=== PATIENT | male | born 1930 | race Caucasian/White ===

== ENCOUNTER 2017-03-10 03:10 | Inpatient (IN) ==
[2017-03-05 14:49] LABS: HEMATOCRIT 40.1 % (42.0-52.0); HEMOGLOBIN 13.8 g/dL (14.0-18.0); MCH 31.9 PG (27-31); MCHC 34.4 g/dL (33-37); MCV 92.6 FL (81-99); MPV 9.4 FL (7.4-10.4); RBC 4.33 XMIL (4.7-6.1)
[2017-03-05 15:05] LABS: AGAP 13; BUN 26 mg/dL (8-22); CALCIUM 10.1 mg/dL (8.8-10.2); CHLORIDE 97 mmol/L (98-107); COSMO 279; POTASSIUM 4.8 mmol/L (3.5-5.1); SODIUM 137 mmol/L (136-145); TCO2 27 mmol/L (25-35)
--- NOTE | 2017-03-05 15:09 | EKG Report ---
Test Performed on : 03/05/2017 2:35:36 PM Test Reason : PAT Blood Pressure : / mmHG Vent. Rate : 070 BPM Atrial Rate : 060 BPM P-R Int : 210 ms QRS Dur : 104 ms QT Int : 420 ms P-R-T Axes : 065 -41 070 degrees QTc Int : 453 ms Sinus rhythm. with 1st degree AV block. with occasional and consecutive premature ventricular comple xes. Left axis deviation Abnormal ECG When compared with ECG of 18-JUN-2015 08:54, fusion complexes are no longer present Nonspecific T wave abnormality aVL RSR' or QR pattern in V1 suggests right ventricular conduction delay Confirmed by Vitaliy Antunez DO ([id number]) on 03/08/2017 8:05:56 PM
[2017-03-10] MEDS ORDERED: REGLAN ONE (06:51)
[2017-03-10] MEDS ORDERED: PEPCID ONE (06:51)
[2017-03-10] MEDS ORDERED: KEFZOL 1 GM/D5W 0 GM/0 ML IVPB ONE (06:51)
[2017-03-10] MEDS ORDERED: LR 1,000 ML ONE (06:52)
[2017-03-10] MEDS ORDERED: NORCURON ONE (07:49)
[2017-03-10] MEDS ORDERED: XYLOCAINE-MPF 2% ONE (07:49)
[2017-03-10] MEDS ORDERED: QUELICIN (DOSE) ONE (07:49)
[2017-03-10] MEDS ORDERED: STERILE WATER INJ. ONE (07:49)
[2017-03-10] MEDS ORDERED: ROBINUL ONE ×2 (07:49→10:28)
[2017-03-10] MEDS ORDERED: NEO-SYNEPHRINE ONE (07:50)
[2017-03-10] MEDS ORDERED: ATROPINE ONE (07:50)
[2017-03-10] MEDS ORDERED: NITROGLYCERIN 50 MG/D5W 50 MG/250 ML IV.SOLN ONE (08:48)
[2017-03-10] MEDS ORDERED: KEFZOL 1 GM/D5W 1 GM/50 ML IVPB ONE (08:55)
[2017-03-10] MEDS ORDERED: VERSED ONE (08:57)
[2017-03-10] MEDS ORDERED: HEPARIN ONE (09:02)
[2017-03-10] MEDS ORDERED: XYLOCAINE 1% ONE (09:03)
[2017-03-10] MEDS ORDERED: NS 500 ML ONE (09:03)
[2017-03-10] MEDS ORDERED: NS 1,000 ML ONE ×2 (09:03→11:36)
[2017-03-10] MEDS ORDERED: DIPRIVAN 1% ONE (09:12)
[2017-03-10] MEDS ORDERED: KEFZOL ONE (09:14)
[2017-03-10] MEDS ORDERED: SENSORCAINE 0.5%-EPI 1:200,000 ONE (09:21)
[2017-03-10] MEDS ORDERED: HEPARIN (DOSE) ONE (09:53)
[2017-03-10 10:23] LABS: ALLEN TEST NO; BE 2.2 mmoll (-3.0-3.0); BLOOD TYPE ARTERIAL; METHB 1.7 % (0.0-1.5); PCO2(98.6) 34 mmHg (35-45); PO2(98.6) 383 mmHg (60-100); SAMPLE BLOOD; SAO2 99.6 % (95.0-100.0); SRATE 10 BPM; TVOL 700 mL; pH(98.6) 7.48 (7.35-7.45)
[2017-03-10] MEDS ORDERED: NEOSTIGMINE ONE (10:23)
[2017-03-10 10:24] LABS: DRAW SITE OTHER; MODALITY VENTILATOR
[2017-03-10] MEDS ORDERED: ZOFRAN ONE (10:29)
[2017-03-10] MEDS ORDERED: DECADRON ONE (10:29)
[2017-03-10] MEDS: OFIRMEV 1000 MG/ISOTONIC SOLN 1,000 MG/100 ML BOTTLE ONE ×2 (11:30→12:42)
--- NOTE | 2017-03-10 12:23 | OPERATIVE NOTE ---
PROCEDURE DATE: 03/10/2017 PROCEDURE PERFORMED: Right carotid endarterectomy with patch angioplasty. SURGEON: Miguel Cook MD TIMBER SPRINKLER: Orlando Devries MD, who assisted with dissection, endarterectomy, and closure. PREOPERATIVE DIAGNOSIS: High-grade right internal carotid stenosis. POSTOPERATIVE DIAGNOSIS: High-grade right internal carotid stenosis. DESCRIPTION OF PROCEDURE: Satisfactory general endotracheal anesthesia was achieved. The patient was placed into gentle reverse Trendelenburg position. The right side of the neck was prepped and draped in a sterile fashion. We ultrasounded the neck to prove that the bifurcation was in the mid aspect of the neck. We then prepped and draped the area of the right side of the neck in a sterile fashion. We anesthetized the skin with 0.25% Marcaine with epinephrine along the anterior border of the sternocleidomastoid muscle. We incised the skin along the anterior border and this carried our incision through the platysma. We then identified the anterior facial vein. We ligated it and divided it, and added an additional clip on each end of the vein. We then exposed the bifurcation of the common carotid. We surrounded the common carotid with an umbilical tape. The external carotid was surrounded with a large vessel loop. We dissected out the internal carotid and surrounded a small vessel loop. Heparin 5000 units was given. After the heparin had circulated for 4-5 minutes, we then occluded flow in the branch vessels and clamped off the common. Under 2.5 loupe magnification, we incised the common and extended it with Aquino scissors through the plaque in the proximal internal into finally reaching normal lumen of the internal carotid. We placed a 4-3 mm Sundt shunt, the smaller end going in the internal and the larger end going in the common. Clamp time was about 2 minutes. We then used a Ridgeway to raise the plaque out of the common. We transected it proximally with Aquino scissors. We used a Ridgeway to continue to dissect the plaque out of the bifurcation. We did an eversion endarterectomy out of the external and then used a Ridgeway to continue to dissect the plaque from the internal until we had a nice taper point distally. We irrigated out the endarterectomized vessel and removed all leaflets we could identify. We did tack the intima distally with two 7-0 Prolene stitches. We then obtained a 1 x 6 patch and, after it was appropriately prepared, we then sutured it to the endarterectomized vessel using a 6-0 Prolene running stitch. As we neared completion, we back bled the external, removed the shunt, back bled the internal fore bled the common and, once again, occluded flow in the branch vessels. We then completed the patch angioplasty. We held the internal occluded, we opened the external and then the common. After 5 seconds, we opened the internal. A couple of extra stitches were used to achieve complete hemostasis of the patch angioplasty. We irrigated out the wound with Kefzol-impregnated saline. We placed a Laith drain within the wound. We secured it to the skin with 2-0 silk. We then proceeded to close the platysma with a running 3-0 Polysorb. Once again, we used 0.25% Marcaine with epinephrine in the subcutaneous tissue and skin. We closed the skin with a 4-0 Polysorb subcuticular stitch. A sterile dressing was applied. He tolerated it well and was awakened at the time of this dictation. cc: Miguel Coko MD
[2017-03-10] MEDS ORDERED: NS 1,000 ML IV ONE (12:43)
[2017-03-10] MEDS ORDERED: TUMS PO PRN (12:43)
[2017-03-10] MEDS ORDERED: ZOFRAN IV PRN (12:43)
[2017-03-10] MEDS ORDERED: ANALGESIC BALM TOP PRN (13:15)
[2017-03-10] MEDS: ULTRAM PO PRN ×2 (13:30→21:37)
[2017-03-10] MEDS ORDERED: MORPHINE IV PRN (16:51)
[2017-03-10] MEDS: OFIRMEV 1000 MG/ISOTONIC SOLN 1,000 MG/100 ML BOTTLE IV SCH ×2 (17:22→23:19)
[2017-03-10] MEDS: SYMBICORT 160/4.5 MICROGM INHALER INH SCH (20:15)
[2017-03-10] MEDS: ZANTAC PO SCH (20:23)
[2017-03-10] MEDS: PHENERGAN PR PRN (21:01)
[2017-03-11] MEDS: OFIRMEV 1000 MG/ISOTONIC SOLN 1,000 MG/100 ML BOTTLE IV SCH ×4 (04:46→23:26)
[2017-03-11] MEDS: SYMBICORT 160/4.5 MICROGM INHALER INH SCH ×2 (08:30→19:40)
[2017-03-11] MEDS: CARDIZEM CD PO SCH (08:46)
[2017-03-11] MEDS: CYMBALTA PO SCH (08:46)
[2017-03-11] MEDS: COZAAR PO SCH (08:46)
[2017-03-11] MEDS: ZANTAC PO SCH ×2 (08:46→20:21)
[2017-03-11] MEDS: ASPIRIN PO SCH (08:46)
[2017-03-11] MEDS: ULTRAM PO PRN (21:19)
[2017-03-12] MEDS: PHENERGAN PR PRN (00:07)
[2017-03-12] MEDS: OFIRMEV 1000 MG/ISOTONIC SOLN 1,000 MG/100 ML BOTTLE IV SCH (05:26)
[2017-03-12] MEDS: SYMBICORT 160/4.5 MICROGM INHALER INH SCH (07:50)
[2017-03-12 07:53] VITALS: BP 129/62
[2017-03-12] MEDS: COZAAR PO SCH (08:57)
[2017-03-12] MEDS: CYMBALTA PO SCH (08:57)
[2017-03-12] MEDS: CARDIZEM CD PO SCH (08:57)
[2017-03-12] MEDS: ASPIRIN PO SCH (08:57)
[2017-03-12] MEDS: ZANTAC PO SCH (08:57)
== END 2017-03-12 11:15 | disposition home or self-care (01) ==
LOC: SURHOLD 03:10 → EDSTATUS 10:00 → ICU 12:37
PROVIDERS: ADMIT Surgery; ATTEND Surgery

== ENCOUNTER 2017-03-25 03:18 | Inpatient (IN) ==
[2017-03-25] MEDS ORDERED: ASPIRIN PO STA (03:30)
--- NOTE | 2017-03-25 03:32 | PROVIDER DOCUMENTATION ---
HPI-Chest Pain - General Stated Complaint: CHEST PAIN Time Seen by Provider: 03/25/17 03:30 Source: patient (Patient is a 86 year old white male who presents with substernal chest heaviness since yesterday.) Allergies/Adverse Reactions: Patient Allergies Allergy/AdvReac Type Severity Reaction Status Date / Time No Known Allergies Allergy Verified 03/25/17 03:49 Home Medications: Home Medication List Medication Instructions Recorded Confirmed Last Taken Type Diltiazem HCl [Diltiazem 24Hr ER] 240 mg PO DAILY 03/10/13 03/10/17 03/09/17 History Lorazepam 1 mg PO PRN PRN 03/10/13 03/10/17 03/08/17 History Losartan [Cozaar] 50 mg PO DAILY 03/10/13 03/10/17 03/09/17 History Fluticasone Propionate [Flonase 2 sprays NS DAILY PRN #1 spray.susp 06/18/15 Unknown Rx Allergy Relief] Acetaminophen [Tylenol] 500 mg PO Q4H PRN PRN 03/05/17 03/10/17 03/09/17 History Budesonide/Formoterol Fumarate 10.2 gm IH BID 03/05/17 03/10/17 03/08/17 History [Symbicort 160-4.5 Mcg Inhaler] Calcium Carbonate [Tums] 200 mg PO PRN PRN 03/05/17 03/10/17 Unknown History Cilostazol 100 mg PO BID 03/05/17 03/10/17 03/06/17 History Duloxetine HCl [Cymbalta] 30 mg PO DAILY 03/05/17 03/10/17 Unknown History Menthol [Icy Hot] 1 each TP PRN PRN 03/05/17 03/10/17 Unknown History Ranitidine HCl [Zantac] 300 mg PO BID 03/05/17 03/10/17 03/07/17 History Aspirin [Adult Low Dose Aspirin EC] 81 mg PO DAILY #100 tablet. 03/12/17 Unknown Rx Tramadol [Ultram] 50 mg PO Q6H PRN PRN #20 tablet 03/12/17 Unknown Rx - History of Present Illness-CP Location: reports: substernal Severity in ED: moderate Onset/Duration: 24 hours ago Timing: intermittent Aspirin Treatment Today: no aspirin today Similar Symptoms Previously?: Yes Recently Seen Here or By Another Healthcare Provider: No Review of Systems - Adult - REVIEW OF SYSTEMS - ADULT Constitutional: reports: see HPI. denies: chills, fever Eyes: reports: no symptoms reported Ears, Nose, Mouth & Throat: reports: no symptoms reported Cardiovascular: reports: chest pain Respiratory: reports: no symptoms reported Gastrointestinal: reports: no symptoms reported Genitourinary: reports: no symptoms reported Musculoskeletal: reports: no symptoms reported Integumentary: reports: no symptoms reported Neurological: reports: no symptoms reported Psychiatric: reports: no symptoms reported Endocrine: reports: no symptoms reported Hematologic/Lymphatic: reports: no symptoms reported Allergic/Immunologic: reports: no symptoms reported All Other Systems: Reviewed and Negative Past History - Adult - PAST MEDICAL HISTORY-ADULT Review of Records: reports: Old Records Reviewed, Nursing Assessment Review, Medications Reviewed, Social history reviewed & non-contributory. Cardiovascular: reports: HTN Respiratory: reports: COPD Endocrine/Immune: reports: cancer (skin) - PRIOR SURGERIES/PROCEDURES Surgical/Procedure History: reports: cholecystectomy, other (TURP) - IMMUNIZATION STATUS Childhood Immunizations: See Nurse Assessment Flu Vaccine: See Nurse Assessment Physical Exam-General - CONSTITUTIONAL General Appearance: alert, no apparent distress, other (severe hearing loss, nondiaphoretic) - EYES Eyes: pink conjunctivae - HEAD, EARS, NOSE, MOUTH & THROAT HENMT: moist mucous membranes - NECK Neck: supple - RESPIRATORY Respiratory: lungs clear, no pleuratic chest pain - CARDIOVASCULAR Cardiovascular: regular rate, rhythm - GASTROINTESTINAL (ABDOMEN) Abdominal Exam: non tender, soft - MUSCULOSKELETAL Back Exam: normal inspection, no CVA tenderness Extremity: normal range of motion, non-tender - SKIN Integumentary: normal color, normal turgor - NEUROLOGIC Neurologic: grossly normal, other (nonfocal) - PSYCHIATRIC Psych/Mental Status: other (anxious) Progress - PLAN OF CARE/RESULTS Progress/Plan/Lab Results: Vital Signs - 8 hr 03/25/17 03:31 03/25/17 04:54 Temperature 97.7 F Pulse Rate 88 92 H Respiratory Rate 20 18 Blood Pressure 125/69 142/87 O2 Sat by Pulse Oximetry 99 98 Laboratory Results - last 24 hr 03/25/17 03/25/17 03/25/17 03:40 03:40 03:40 WBC 10.75 RBC 4.29 L Hgb 13.7 L Hct 39.5 L MCV 92.1 MCH 31.9 H MCHC 34.7 RDW Std Deviation 12.8 Plt Count 274 MPV 8.7 Immature Gran % (Auto) 0.2 Neut % (Auto) 72.2 Lymph % (Auto) 15.4 L Kaufman % (Auto) 9.7 H Eos % (Auto) 2.2 Baso % (Auto) 0.3 Immature Gran # (Auto) 0.02 Neut # (Auto) 7.76 H Lymph # (Auto) 1.66 Kaufman # (Auto) 1.04 H Eos # (Auto) 0.24 Baso # (Auto) 0.03 PT INR PTT (Actin FS) D-Dimer 0.89 H Sodium 135 L Potassium 4.2 Chloride 97 L Carbon Dioxide 27 Anion Gap 11 BUN 22 Creatinine 1.1 Estimated GFR/1.73 m2 > 60 BUN/Creatinine Ratio 20 Glucose 108 H Calculated Osmolality 274 Calcium 8.9 Magnesium 2.5 Total Bilirubin 0.55 AST 46 H ALT 17 Alkaline Phosphatase 90 Creatine Kinase 288 H Creatine Kinase Index 20.1 H CK-MB (CK-2) 57.97 H Troponin T Rmy-Z-Fnyidfhismk Pept Total Protein 7.1 Albumin 4.1 Globulin 3.0 Albumin/Globulin Ratio 1.4 03/25/17 03/25/17 03/25/17 03:40 03:40 03:40 WBC RBC Hgb Hct MCV MCH MCHC RDW Std Deviation Plt Count MPV Immature Gran % (Auto) Neut % (Auto) Lymph % (Auto) Kaufman % (Auto) Eos % (Auto) Baso % (Auto) Immature Gran # (Auto) Neut # (Auto) Lymph # (Auto) Kaufman # (Auto) Eos # (Auto) Baso # (Auto) PT 10.0 INR 0.96 PTT (Actin FS) 26.6 D-Dimer Sodium Potassium Chloride Carbon Dioxide Anion Gap BUN Creatinine Estimated GFR/1.73 m2 BUN/Creatinine Ratio Glucose Calculated Osmolality Calcium Magnesium Total Bilirubin AST ALT Alkaline Phosphatase Creatine Kinase Creatine Kinase Index CK-MB (CK-2) Troponin T 0.370 H* Sln-J-Hqkezetiodo Pept 5444 H Total Protein Albumin Globulin Albumin/Globulin Ratio Orders Category Date Time Status Cardiac Monitoring DIRECTED Care 03/25/17 03:31 Active Oxygen Therapy- ED Nursing DIRECTED Care 03/25/17 03:31 Active Saline Loc NOW Care 03/25/17 03:31 Active CBC WITH ELECTRONIC DIFF [HEME] Stat Lab 03/25/17 03:40 Completed CK PROFILE [SP CHEM] Stat Lab 03/25/17 03:40 Completed COMPREHENSIVE METABOLIC PANEL [CHEM] Stat Lab 03/25/17 03:40 Completed D-DIMER [CHEM] Stat Lab 03/25/17 03:40 Completed MAGNESIUM [CHEM] Stat Lab 03/25/17 03:40 Completed PRO B-NATRIURETIC PEPTIDE Stat Lab 03/25/17 03:40 Completed PROTIME WITH INR [COAG] Stat Lab 03/25/17 03:40 Completed PTT [COAG] Stat Lab 03/25/17 03:40 Completed TROPONIN T Stat Lab 03/25/17 03:40 Completed Aspirin Med 03/25/17 03:30 Discontinued 325 mg PO STAT STA Enoxaparin 1 mg/kg [Lovenox 1 mg/kg] Med 03/25/17 04:41 Discontinued 1 each SUBQ NOW ONE Lido/Main Alk/Al&mg Hydrox [G.i. Cocktail] Med 03/25/17 03:58 Discontinued 30 ml PO NOW ONE Metoprolol [Lopressor] Med 03/25/17 04:45 Discontinued 25 mg PO NOW ONE EKG [EKG] Stat Ther 03/25/17 03:31 Draft Result Diagrams: 03/25/17 03:40 03/25/17 03:40 - EKG 1 Time of EKG reading by physician:: 03:27 EKG Read and Signed by:: Kelechi Davalos EKG Interpretation (*Must complete 3 of following elements*): Abnormal Rate: 87 Rhythm: atrial fibrillation [place]: normal QRS: normal IA Interval: normal ST Wave: normal Prior EKG Comparison: no prior EKG Departure - Departure Date of Disposition Decision: 03/25/17 Time of Disposition Decision: 05:28 DIAGNOSIS: Non-ST elevated myocardial infarction Disposition: ADMITTED INPATIENT 09 Certified Medical Emergency: Emergent Condition: Stable Referrals and Follow-Ups: Christy Prado MD [Primary Care Provider] - - Critical Care Note This patient required my direct & personal management of CC.: Yes Attestation - Physician/ RIO Attestation Patient care was provided by Advanced Practice Provider:: No The physician spent face to face time with patient:: Yes Advanced Practice Provider documentation review:: Supervising physician onsite and consulted in the evaluation and care of this patient. The physician did have a face to face encounter with the patient.
[2017-03-25 03:54] LABS: MANUAL DIFF NEEDED? NO
[2017-03-25 03:58] LABS: BASO% 0.3 % (0.0-0.8); EOS# 0.24 X1000 (0.0-0.7); EOS% 2.2 % (0.0-10.0); HEMATOCRIT 39.5 % (42.0-52.0); HEMOGLOBIN 13.7 g/dL (14.0-18.0); IMM GRAN# 0.02 X1000 (0.0-0.04); IMM GRAN% 0.2 % (0.0-0.5); LYMPH# 1.66 X1000 (1.2-3.4); LYMPH% 15.4 % (20.5-51.1); MCH 31.9 PG (27-31); MCHC 34.7 g/dL (33-37); MCV 92.1 FL (81-99); MONO# 1.04 X1000 (0.11-0.59); MONO% 9.7 % (1.7-9.3); MPV 8.7 FL (7.4-10.4); NEUT% 72.2 % (42.2-75.2); PLT 274 X1000 (130-400); RBC 4.29 XMIL (4.7-6.1)
[2017-03-25] MEDS ORDERED: G.I. COCKTAIL PO ONE (03:58)
[2017-03-25 04:07] LABS: INR 0.96; PTT 26.6 Seconds (22.0-36.0)
[2017-03-25 04:17] LABS: AGAP 11; ALBUMIN 4.1 g/dL (3.5-5.0); ALKALINE PHOSPHATASE 90 U/L (32-122); BUN 22 mg/dL (8-22); CALCIUM 8.9 mg/dL (8.8-10.2); CHLORIDE 97 mmol/L (98-107); COSMO 274; GOT 46 U/L (10-34); GPT 17 U/L (10-44); MAGNESIUM 2.5 mg/dL (1.5-2.7); POTASSIUM 4.2 mmol/L (3.5-5.1); SODIUM 135 mmol/L (136-145); TCO2 27 mmol/L (25-35); TOTAL BILIRUBIN 0.55 mg/dL (0.20-1.00); TOTAL PROTEIN 7.1 g/dL (6.3-8.3)
[2017-03-25 04:26] LABS: CK PROFILE 288 U/L (24-204)
[2017-03-25 04:40] LABS: CK INDEX 20.1 (0.0-2.5); CK-MB 57.97 ng/mL (0.0-5.0)
[2017-03-25] MEDS ORDERED: LOVENOX 1 MG/KG SUBQ ONE (04:41)
[2017-03-25] MEDS ORDERED: LOPRESSOR PO ONE (04:45)
--- NOTE | 2017-03-25 05:17 | EKG Report ---
Test Performed on : 03/25/2017 04:23:37 AM Test Reason : Chest Pain Blood Pressure : / mmHG Vent. Rate : 085 BPM Atrial Rate : 288 BPM P-R Int : 000 ms QRS Dur : 088 ms QT Int : 460 ms P-R-T Axes : 000 -24 169 degrees QTc Int : 547 ms Atrial fibrillation. with premature ventricular or aberrantly conducted complexes. Marked ST abnormality, possible anterior subendocardial injury Prolonged QT Abnormal ECG When compared with ECG of 25-MAR-2017 03:26, (Unconfirmed) No significant change was found Unconfirmed Result
[2017-03-25] MEDS ORDERED: NITROGLYCERIN TOP ONE (05:33)
--- NOTE | 2017-03-25 05:33 | EKG Report ---
Test Performed on : 03/25/2017 03:26:29 AM Test Reason : HEAVINESS INCHEST Blood Pressure : / mmHG Vent. Rate : 087 BPM Atrial Rate : 312 BPM P-R Int : 000 ms QRS Dur : 090 ms QT Int : 418 ms P-R-T Axes : 000 -19 174 degrees QTc Int : 502 ms Atrial fibrillation. with premature ventricular or aberrantly conducted complexes. ST \T\ T wave abnormality, consider anterolateral ischemia Prolonged QT Abnormal ECG When compared with ECG of 05-MAR-2017 14:35, Atrial fibrillation. has replaced Sinus rhythm. ST now depressed in Anterior leads Nonspecific T wave abnormality now evident in Inferior leads T wave inversion now evident in Anterolateral leads Unconfirmed Result
[2017-03-25] MEDS ORDERED: LOVENOX SUBQ ONE (06:00)
--- NOTE | 2017-03-25 07:34 | Diag Imaging Result Doc PS360 ---
CHEST-PORTABLE - 03/25/2017 INDICATION: Chest Pain TECHNIQUE: COMPARISON: 07/26/2014 FINDINGS: Stable linear scarring in the right midlung. No focal infiltrates, pneumothorax, or pleural effusion. Heart size and pulmonary vascularity is normal. IMPRESSION: No acute disease or change from prior. Electronically signed by Glenn Tai 03/25/2017 7:32 AM
[2017-03-25] MEDS ORDERED: TYLENOL PO PRN (08:07)
[2017-03-25] MEDS ORDERED: ATIVAN PO PRN (08:32)
[2017-03-25] MEDS ORDERED: DUONEB (A & A) INH PRN (08:35)
[2017-03-25] MEDS ORDERED: PROTONIX PO SCH (09:00)
[2017-03-25] MEDS ORDERED: CYMBALTA PO SCH (09:00)
[2017-03-25] MEDS ORDERED: ZANTAC PO SCH (09:00)
[2017-03-25] MEDS: ZOFRAN IV PRN ×2 (09:05→12:58)
[2017-03-25] MEDS: MORPHINE IV PRN ×2 (09:06→12:58)
[2017-03-25 10:22] LABS: CK INDEX 20.7 (0.0-2.5); CK-MB 74.75 ng/mL (0.0-5.0)
--- NOTE | 2017-03-25 10:51 | EKG Report ---
Test Performed on : 03/25/2017 09:13:22 AM Test Reason : NSTEMI Blood Pressure : / mmHG Vent. Rate : 085 BPM Atrial Rate : 271 BPM P-R Int : 000 ms QRS Dur : 086 ms QT Int : 434 ms P-R-T Axes : 062 -36 142 degrees QTc Int : 516 ms Atrial flutter. with variable AV block. Left axis deviation ST \T\ Marked T wave abnormality, consider anterolateral ischemia Prolonged QT Abnormal ECG When compared with ECG of 25-MAR-2017 04:23, Atrial flutter. has replaced Atrial fibrillation. Confirmed by Vitaliy Antunez DO ([id number]) on 03/25/2017 6:19:16 PM
[2017-03-25] MEDS ORDERED: LOPRESSOR PO SCH (11:30)
[2017-03-25 12:12] VITALS: BP 117/70
--- NOTE | 2017-03-25 12:16 | HISTORY AND PHYSICAL ---
PRIMARY CARE PROVIDER: Christy Prado MD. Date and Time of History and Physical: 03/25/17 at 0600. CHIEF COMPLAINT: Chest pain. HISTORY OF PRESENT ILLNESS: Mr. Cain is an 86-year-old, male, who presented to the ER early this morning at approximately 3 a.m. He states that yesterday morning he began having epigastric and burning type abdominal pain. He does report a history of gastroesophageal reflux disease, as well as frequent constipation. The patient states that this type pain frequently happens when he has to use a laxative to have a bowel movement, although he reports that this pain continued throughout the day and later on that evening became a different type pain with pressure across his chest. He also reports some mid back pain as well that was across his mid back. The patient does report a history of chronic back pain due to arthritis and degenerative disk disease, but states this pain was different compared to his previous back pain. The patient denied any dizziness, lightheadedness, shortness of breath or palpitations, although did report some diaphoresis with this pain. He did report some nausea and ER staff did state that he vomited once in the ED. The patient did undergo a recent surgery for a right carotid endarterectomy secondary to right internal carotid stenosis. This was performed on 02/28/2017. His family at bedside did state though the patient has not had any complications secondary to surgery, but did state that since his procedure he has not been back to his normal self and has been more fatigued than he normally is. The patient also denied any history of cough, fever, body aches or chills. He denied any dysuria or urinary frequency. He also denied any swelling, pain, numbness or tingling in his extremities. Upon evaluation in the ER, the patient was found to have EKG findings of atrial flutter with premature ventricular or aberrantly conducted complexes. There was also ST and T-wave abnormality, which were concerning for anterolateral ischemia. Rate was 87, QTc was 502. His CK total was elevated, as well as the index and the MB, and his troponin was also elevated at 0.37. Dr. Antunez with cardiology was consulted by the ER physician for possible non ST elevation VA. Dr. Antunez did accept the patient and does want him to be admitted here for further treatment and evaluation of a non ST elevation VA and to be placed on Lovenox therapy. Also upon questioning, the patient denies any previous history of an irregular heartbeat or tachycardia. He states that he is unsure of why he takes the diltiazem on his medication list. The patient is somewhat of a poor historian, although his and son at bedside, were able to assist with some information pertaining to history of present illness and past medical history. At this time we will admit the patient for further treatment evaluation. REVIEW OF SYSTEMS: A 12 point review of systems was conducted with the patient. All were negative, except for pertinent positives mentioned in the HPI. PAST MEDICAL HISTORY: 1. COPD. 2. Hypertension. 3. Hyperlipidemia. 4. Peripheral artery disease. 5. Gastroesophageal reflux disease. 6. Lumbar spinal stenosis. 7. Anxiety. 8. Benign prostatic hypertrophy. 9. Right internal carotid stenosis status post right carotid endarterectomy. 10. Skin cancer. 11. Arthritis. PAST SURGICAL HISTORY: 1. Status post right carotid endarterectomy on 02/28/2017. 2. Cholecystectomy. 3. Cataract surgery. 4. Tonsillectomy. 5. Right popliteal balloon angioplasty, right common femoral, superficial femoral and profunda femoris endarterectomy, and patch graft angioplasty performed by Dr. Devries in August 2010. 6. Transurethral resection of prostate. SOCIAL HISTORY: The patient is a former smoker, although he quit smoking 40 years ago. He has known history of alcohol or illicit drug use. He currently lives at home with his . FAMILY HISTORY: Positive for his mother having a history of lupus and his father having a history of congestive heart failure. He does have a son who secondary to Hodgkin disease. ALLERGIES: Patient has no known allergies. HOME MEDICATIONS: 1. Brovana nebulizer 15 mcg inhaled q. 12 hours. 2. Cilostazol 100 mg p.o. b.i.d. 3. Diltiazem 24 hour extended release 240 mg p.o. daily. 4. Cymbalta 30 mg p.o. daily. 5. Flonase allergy relief 2 sprays nasally p.r.n. as needed for nasal congestion. 6. Robitussin AC 5 mL p.o. p.r.n. for cough. 7. Atrovent 0.03% nasal spray, 2 sprays nasally b.i.d. 8. Lorazepam 1 mg p.o. b.i.d. 9. Losartan 50 mg p.o. daily. 10. Protonix 3 mg p.o. daily. 11. Zantac 300 mg p.o. b.i.d. DIAGNOSTIC DATA/LABORATORY RESULTS: White blood cell count 10.7, hemoglobin. 13.5, hematocrit 39.5, platelet count is 274. PT 10 and INR 0.96. PTT is 26.6. D-dimer 0.89. Sodium 135, potassium 4.2, chloride 97, bicarbonate 27. BUN 22, creatinine 1.1 with a GFR greater than 60, glucose 108, calcium 8.9, magnesium 2.5. Total bilirubin is 0.55. AST 46, ALT 17, alkaline phosphatase is 90. CI is 288 and CK index 20.1 and CK-MB is 57.97. Troponin was 0.370. ProBNP 5424. EKG showed atrial flutter with premature intraventricular or aberrantly conducted complexes. There is a marked ST abnormality that is concerning for anterolateral ischemia. The rate is 87 with a QTc of 502. Chest x-ray showed no acute disease or change from prior. This is from radiology. PHYSICAL EXAMINATION: VITALS: Temperature 97.7 degrees, heart rate 82, respirations 20, blood pressure 104/67 and oxygen saturation is 94% on room air. GENERAL: Mr. Cain is a pleasant, 86-year-old, male, who is resting comfortably on the ER stretcher. He is in no acute distress. He was awake, alert, and able to answer questions appropriately. HEENT: Head is atraumatic, normocephalic. Pupils are equal, round, reactive to light, were 3 mm bilaterally and brisk. Oral mucosa is moist. Oropharynx is clear. NECK: Supple. Trachea midline. No jugular venous distention noted. No carotid bruits noted on auscultation bilaterally. CARDIOVASCULAR: Patient has normal S1, S2. No murmurs, gallops, rubs appreciated with a regular rate and slightly irregular rhythm. PULMONARY: The patient has symmetrical chest expansion bilaterally. Lung sounds are clear to auscultation in bilateral [place]. ABDOMEN: Soft, nontender, nondistended bowel. Bowel sounds are present in all four quadrants. EXTREMITIES: No cyanosis, clubbing or edema noted. Pulse, motor and sensory are intact in all extremities. Pedal pulses are 2+ bilaterally. Capillary refill was less than 3. NEUROLOGICAL: Patient is alert and oriented to person, place, time and situation. Cranial nerves 2-12 are grossly intact. ASSESSMENT AND PLAN: 1. Non ST elevation myocardial infarction. Cardiology has been consulted. The patient has been anticoagulated with Lovenox per their request. He will receive Lovenox 1 mg/ kg subcutaneous every 12 hours. He has also received an aspirin. We will continue with close cardiac monitoring in the [facility] with telemetry. He will have vital signs every 4 hours. We will continue with serial cardiac enzymes. The patient will remain on nothing by mouth until evaluated by cardiology. We have also ordered repeat electrocardiogram for later on this morning. At this time, the patient's chest pain has subsided. He has received nitroglycerin and morphine for his pain, and we will continue to follow his condition closely. 2. Hypertension. At this time, the patient's blood pressure is on the low side with the last blood pressure of 104/67. He did receive some metoprolol 25 mg oral in the emergency room, although at this time given his blood pressure we will hold any further antihypertensive until he is evaluated by cardiology, although we will continue to follow this closely. 3. Atrial flutter. This does appear to be of new onset. The patient does report he takes diltiazem, although it is uncertain of why. He denies any previous known history of cardiac arrhythmias. At this time, his rate is well controlled maintaining in the 80s and 90s. He has been anticoagulated for treatment of his non ST-elevation myocardial infarction as mentioned above, and we will continue to monitor and await cardiology evaluation. 4. History of hyperlipidemia. The patient does not currently take any medications for this, although given his chest pain we have order for lipid profile to be drawn and we will continue to follow. 5. Chronic obstructive pulmonary disease. We have placed orders for as-needed DuoNeb treatments as needed. 6. Anxiety. We will continue his lorazepam. 7. Gastroesophageal reflux disease. We will continue his Zantac and Protonix. The patient will be placed on [facility] with telemetry. He will have strict intake and output, vital signs every [address] did place an order for an echocardiogram as well, and we are awaiting those results. Further orders and recommendations pending hospital course, diagnostic studies and physician evaluation. Dictated by DELVIS Hayes for Francisca Wilson MD cc: MD Christy Marcus MD MTDD
--- NOTE | 2017-03-25 12:49 | DISCHARGE SUMMARY ---
ADMISSION DATE: 03/25/2017 DISCHARGE DATE: 03/25/2017 DISCHARGE DIAGNOSES: 1. Non ST elevation myocardial infarction. 2. Hypertension. 3. Dyslipidemia. 4. Chronic obstructive pulmonary disease. 5. Peripheral arterial disease. 6. Carotid atherosclerosis. HOSPITAL COURSE: Mr. Cain is an 86-year-old gentleman who presented to the emergency department last night with 1-day history of chest pain. He was noted to have elevated troponin levels and abnormal ECG suggesting non ST elevation myocardial infarction. Cardiology consultation was obtained and patient was admitted to the hospital and was given enoxaparin. He was also given aspirin along with metoprolol and was given morphine sulfate for chest pain relief. Because of the patient's overall condition and non ST elevation myocardial infarction Dr. Noriega from the Cardiology service saw the patient, and decided to transfer patient to [facility]. Further care will be provided at [facility]. CURRENT MEDICATIONS: 1. Aspirin 81 mg orally once daily. 2. Atorvastatin 40 mg orally once daily at bedtime. 3. Duloxetine 30 mg orally once daily. 4. Enoxaparin 70 mg subcutaneously every 12 hours. 5. Metoprolol 25 mg orally every 6 hours. 6. Morphine sulfate 2 mg IV q.4 hours as needed for pain. 7. Zofran 4 mg IV q.4 hours as needed for nausea and vomiting. 8. Protonix 40 mg orally once daily. 9. Ranitidine 300 mg orally once daily. 10. Lorazepam 1 mg orally twice daily as needed for anxiety. 11. Acetaminophen 650 mg p.o. q.6 hours as needed for fever and pain. cc: Christy Prado MD MTDD
--- NOTE | 2017-03-25 14:05 | CONSULTATION ---
DATE OF CONSULTATION: 03/25/2017 IMPRESSION: 1. Small non-ST elevation myocardial infarction in the anterior distribution. 2. Peripheral artery disease. A) Status post previous angioplasty/stent procedures involving lower extremities B) Status post right carotid endarterectomy 03/10/2017. 3. Hyperlipidemia. 4. Hypertension. 5. Atypical atrial flutter versus atrial fibrillation of unknown duration. RECOMMENDATIONS: 1. Continue aspirin, Lovenox and metoprolol. 2. Serial cardiac enzymes. 3. Given clinical presentation, favor transfer to facility with interventional cardiology services. This was discussed at length with the patient's family and arrangements have been made to transfer patient to [facility] for further care. HISTORY: This 86-year-old white male with past history of hypertension, hyperlipidemia, and peripheral vascular disease was admitted through the emergency room this morning with chest discomfort and abnormal cardiac enzymes. ECG was also abnormal. Small non-ST elevation myocardial infarction, anterior distribution is suggested. The patient is a somewhat limited historian. He has a long history of chronic back disorder for which he has received injections with improvement. He also relates a 10 to possibly 15 year history of gastroesophageal reflux, characterized as a substernal chest pressure. He reports that yesterday, he started having discomfort that started in the abdomen as indigestion or pressure discomfort that janel up into his chest. Discomfort was persistent for a good number of hours. He also had some bilateral shoulder discomfort, which he had not experienced with his back disorder in the past. He continued with some chronic back discomfort as well. His usual remedies for reflux did not seem to help and he ultimately presented to the emergency room for evaluation early this morning. Chest symptoms have improved since coming to the hospital, although he had some brief re-emergence after being admitted. He is not aware of any previous cardiac problems or arrhythmias. PAST MEDICAL HISTORY: 1. Hypertension. 2. Hypercholesterolemia. 3. Gastroesophageal reflux disease for approximately 10-15 years. 4. History of squamous cell carcinoma removed. 5. Peripheral vascular disease, with previous bilateral lower extremity revascularization procedures with angioplasty/stent, as well as more recent right carotid endarterectomy. 6. Osteoarthritis. PAST SURGICAL HISTORY: Also includes cholecystectomy and removal of squamous cell carcinoma from right calf. He is also status post tonsillectomy and prostatectomy. ALLERGIES: No known drug allergies. MEDICATIONS PRIOR TO ADMISSION: As listed. SOCIAL HISTORY: He previously worked for [employer] and retired in his early 50s. 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 He is . He quit smoking many years ago. He drinks alcohol on a regular basis, consuming 1 or 2 glasses of wine daily. FAMILY HISTORY: Negative for premature coronary disease. REVIEW OF SYSTEMS: Pulmonary: Negative. Gastrointestinal: Negative beyond history of present illness. Constitutional: Negative beyond history of present illness. Remainder of review of systems negative/noncontributory beyond history of present illness with 14 total systems reviewed. PHYSICAL EXAMINATION: General: This is a thin, elderly white male in no distress. Vital signs: Blood pressure 106/64, heart rate 90 and regular. HEENT: Extraocular movements intact. Mucous membranes are moist. Neck: Supple without jugular venous distention. Right carotid endarterectomy incision appears to be healing well. Carotid bruits cannot be appreciated. Chest: Clear to auscultation bilaterally. Cardiac Exam: Reveals an irregular rate and rhythm without appreciable murmur or gallop. Abdomen: Soft, nontender. Bowel sounds are normal. Extremities: Without edema. Neurologic Exam: Reveals him to be alert, fully oriented. Speech is fluent. Moves all 4 extremities equally well. Skin: Warm and dry. Psychiatric: Reveals mood to be appropriate. DIAGNOSTIC STUDIES: ECG demonstrates atypical atrial flutter versus atrial fibrillation with ventricular rate response 85 beats per minute. Left axis deviation demonstrated. ST and T-wave abnormality demonstrated. Consider anterolateral ischemia. LAB DATA: Remarkable for initial CPK of 288. Followup CPK 361, initial CPK-MB 57.97. Followup CPK-MB 74.75. CPK-MB index initially 20.1 and follow-up 20.7. Troponin T 0.37. BUN 22, creatinine 1.1. cc: MD Christy Zepeda MD
--- NOTE | 2017-03-25 15:42 | ECHO REPORT ---
ORDER DATE: 03/25/2017 INDICATION: Chest pain. Non ST elevation NC. Atrial flutter. FINDINGS: 1. Right atrium is normal ini size at 3.7 cm. 2. Mild tricuspid regurgitation. RV systolic pressure of 33. 3. Normal RV size and systolic function. 4. Mild pulmonic insufficiency. 5. Mild left atrial enlargement at 4 cm. 6. No mitral valve prolapse. Mild mitral regurgitation. 7. Mild dilatation of the left ventricle with an end-diastolic dimension of 5.8. Normal wall thicknesses with no evidence of left ventricular hypertrophy. There appears to be severe reduction in LV systolic function. Estimated EF is in the 25%-30% range. There appears to be akinesis of the anterior septum, and it also appears to be portions of the apex as well. 8. The aortic valve opens well. It is trileaflet. There is some sclerosis noted of the valve. No evidence of significant stenosis or insufficiency. 9. Aorta appears normal on visualized segments. 10. No pericardial effusion seen. cc: MD Christy Noriega MD
[2017-03-25] MEDS ORDERED: LOVENOX SUBQ SCH (18:00)
[2017-03-25] MEDS ORDERED: LIPITOR PO SCH (21:00)
[2017-03-26] MEDS ORDERED: ASPIRIN PO SCH (09:00)
[2017-03-26] MEDS ORDERED: ZANTAC PO SCH (09:00)
--- NOTE | 2017-05-06 19:20 | ED EKG INTERP ---
This chart was entered by Angelina Dias Scribe, acting as scribe for Dora Lawrence MD. EKG Interpretation - EKG Time of EKG reading by physician:: 04:23 EKG Read and Signed by:: Dora Lawrence EKG Interpretation (*Must complete 3 of following elements*): Abnormal Rate: 85 (w premature ventricular or aberrantly conducted complexes; marked ST abnormality, possible anterior subendocardial injury; prolonged QT) Rhythm: atrial fibrillation - EKG # 2 Time of EKG reading by physician:: 03:26 EKG Read and Signed by:: Dora Lawrence EKG Interpretation (*Must complete 3 of following elements*): Abnormal Rate: 87 (w premature ventricular or aberrantly conducted complexes; ST and T wave abnormality, consider anterolateral ischemia; prolonged QT ) Rhythm: atrial fibrillation Attestation - Physician/ RIO Attestation Patient care was provided by Advanced Practice Provider:: No The physician spent face to face time with patient:: No Advanced Practice Provider documentation review:: Supervising physician onsite and consulted in the evaluation and care of this patient. The physician did not have a face to face encounter with the patient. This chart was documented by the indicated scribe, (Angelina Dias Scribe) and accurately reflects the services I performed and decisions made by me, Dora Lawrence MD, as attested by the provider's signature.
== END 2017-03-25 13:15 | disposition short-term general hospital (02) ==
LOC: ED 03:18 → SUATTDRO 06:28 → EDIPHOLD 06:28 → 3S 07:56
PROVIDERS: ADMIT Internal Medicine; ATTEND Internal Medicine